=== PATIENT | male | born 1990 | race Caucasian/White ===

== ENCOUNTER 2017-02-23 17:18 | Emergency (ER) | payer OTHER ==
[2017-02-23] MEDS ORDERED: Diphtheria,Pertussis(Acell),Tetanus Vaccine 0.5 ML Syringe IM ONE (17:31)
[2017-02-23] MEDS ORDERED: Lidocaine 1% 20 ML MDV INJECT ONE (17:44)
[2017-02-23] MEDS ORDERED: Bacitracin Oint 1 GM U/D Packet TOP ONE (17:44)
--- NOTE | 2017-02-23 17:50 | EDM.PDOC ---
ED HPI GENERAL MEDICAL PROBLEM - General Chief Complaint: Upper Extremity Injury/Pain Stated Complaint: BROKE FINGER Time Seen by Provider: 02/23/17 17:24 Source of Information: Reports: Patient History Limitations: Reports: No Limitations - History of Present Illness INITIAL COMMENTS - FREE TEXT/NARRATIVE: HISTORY AND PHYSICAL: History of present illness: Patient is a 26-year-old male who presents to the emergency room today with complaints of right fifth digit crush injury. He states he was at work when 2 pieces of pipe crushed the fifth digit on his right hand. He has paper towels wrapped around it currently. Bleeding is controlled with mild pressure. Spiral laceration along the lateral portion of the fifth digit. Unsure of his last tetanus shot Review of systems: As per history of present illness and below otherwise all systems reviewed and negative. Past medical history: As per history of present illness and as reviewed below otherwise noncontributory. Surgical history: As per history of present illness and as reviewed below otherwise noncontributory. Social history: No reported history of drug or alcohol abuse. Family history: As per history of present illness and as reviewed below otherwise noncontributory. Physical exam: Gen.: Well-developed and well-nourished 26-year-old male. Appears nontoxic and in no acute distress. Alert and oriented. HEENT: Atraumatic, normocephalic, pupils reactive, negative for conjunctival pallor or scleral icterus, mucous membranes moist, throat clear, neck supple, nontender, trachea midline. Lungs: Clear to auscultation, breath sounds equal bilaterally, chest nontender. Heart: S1S2, regular, negative for clicks, rubs, or JVD. Abdomen: Soft, nondistended, nontender. Negative for masses or hepatosplenomegaly. Negative for costovertebral tenderness. Pelvis: Stable nontender. Genitourinary: Deferred. Rectal: Deferred. Extremities: Crush injury to the right fifth digit. Laceration measuring 1 cm laterally across the palmar surface- deep (was explored for debris and irrigated thoroughly with wound wash/normal saline) which runs into a "J" shaped laceration which is superficial for approximately 1 cm and then goes to an open laceration for 0.4 cm (this was irrigated with wound wash/normal saline) , which crosses to the lateral pinky onto the dorsal aspect of the hand. He has a small circular hematoma to the dorsal surface of the digit near the DIP joint. Patient has good flexion and extension of the affected digit. Capillary refill less than 3 seconds. Drawn radial pulse. Neurovascular unremarkable. Neuro: Awake, alert, oriented. Cranial nerves II through XII unremarkable. Cerebellum unremarkable. Motor and sensory unremarkable throughout. Exam nonfocal. 1800- area was cleansed with chlorhexidine after a digital block was performed. Offered patient some pain medication, he currently declines. He is aware that our hand surgeon is unavailable and he may need to go to [place] this evening. Currently waiting the radiology report. 1839- Dr. Khalil of [facility], was consulted on this case. He is awaiting to view our images on his [employer] system. He will return a phone call shortly. Diagnostics: X-ray of fifth digit and hand-right Therapeutics: Digital block, lidocaine 1% - 4-0 nylon, small needle, was used.#7 interrupted stitches. A shunt tolerated well Bacitracin bulky dressing cage splint Impression: Open comminuted fracture of the fifth digit Plan: 1. It's important for you to follow-up with an orthopedic hand surgeon on Sunday. You have 2 choices of whom you can see. Dr. Love Grijalva, in [place] is available at the [facility]. Or Dr Khalil of [facility]. Both of these phone numbers have been provided for you. Dr. Khalil is the physician that looked at your x-rays and is aware of her case. If you're unable to get in with Dr. Tinsley please call to [facility] in [place] to make your appointment. 2. You received Rocephin IM here. Please continue the antibiotics that have been prescribed for you. Monitor for signs of infection such as not limited to: fever, excessive drainage from the site, redness streaking up the arm. 3. Norco5/325 has been prescribed to you for pain management. He may take 1-2 tabs every 4-6 hours as needed. This is a narcotic so do not take it while driving or needing to be functioning. You may take ibuprofen for breakthrough pain. Rest, ice, elevate the extremity. 4. These keep the dressing on. You have been provided with a cage splint to protect the site. Keep the site clean and dry. 5. If any new symptoms arise follow-up in the ED as needed and as discussed. Definitive disposition and diagnosis as appropriate pending reevaluation and review of above. Onset: Today Duration: Minutes: Location: Reports: Upper Extremity, Right right pinky and right hand Pain Score (Numeric/FACES): 3 - Related Data Allergies Allergy/AdvReac Type Severity Reaction Status Date / Time No Known Allergies Allergy Verified 02/23/17 17:27 Home Meds: Home Meds Sertraline [Zoloft] 75 mg PO DAILY 03/03/15 [History] Hydrochlorothiazide 50 mg PO DAILY 02/23/17 [History] Lisinopril 20 mg PO DAILY 02/23/17 [History] Past Medical History Cardiovascular History: Reports: Hypertension Psychiatric History: Reports: Anxiety, Depression - Infectious Disease History Infectious Disease History: Reports: Chicken Pox Other Infectious Disease History: childhood - Past Surgical History HEENT Surgical History: Reports: Adenoidectomy, Tonsillectomy Social & Family History - Family History Family Medical History: Noncontributory - Tobacco Use Smoking Status *Q: Current Every Day Smoker Years of Tobacco use: 1 Packs/Tins Daily: 1 Second Hand Smoke Exposure: Yes - Caffeine Use Caffeine Use: Reports: Coffee Caffeine Use Comment: 8 oz per day - Recreational Drug Use Recreational Drug Use: No Review of Systems - Review of Systems Review Of Systems: ROS reveals no pertinent complaints other than HPI. ED EXAM, GENERAL - Physical Exam Exam: See Below (See dictation) ED TRAUMA EXTREMITY PROCEDURES - Laceration/Wound Repair Right Finger Lac/Wound Length In cm: 3 (See physical assessment) Appearance: Subcutaneous Distal NVT: Neuro & Vascular Intact, No Tendon Injury Anesthetic Type: Digital Local Anesthesia - Lidocaine (Xylocaine): 1% Plain Local Anesthetic Volume: 5cc Skin Prep: Chlorhexidine (Hibiciens), Saline Exploration/Debridement/Repair: Wound Explored, In a Bloodless Field, No Foreign Material Found Closed With: Sutures Suture Size: 4-0 Suture Type: Nylon # of Sutures: 7 Course - Vital Signs Last Recorded V/S: Last Vital Signs Temp 98.1 F 02/23/17 17:29 Pulse 78 02/23/17 17:29 Resp 16 02/23/17 17:29 BP 143/85 H 02/23/17 17:29 Pulse Ox 96 02/23/17 17:29 - Orders/Labs/Meds Orders: Active Orders 24 hr Category Date Time Status Communication Order [RC] STAT Care 02/23/17 17:45 Active Vaccines to be Administered [RC] PER UNIT ROUTINE Care 02/23/17 17:32 Active Fingers Fifth Digit Rt F9 [CR] Stat Exams 02/23/17 17:31 Taken Hand 2V Rt [CR] Stat Exams 02/23/17 17:31 Taken Meds: Medications Discontinued Medications Generic Name Dose Route Start Last Admin Trade Name Freq PRN Reason Stop Dose Admin Hydrocodone Bitart/Acetaminophen 1 tab 02/23/17 19:18 02/23/17 19:25 [place] 325-5 Mg PO 02/23/17 19:19 1 tab ONETIME ONE Administration Bacitracin 2 dose 02/23/17 17:44 02/23/17 19:11 Bacitracin Oint 1 Gm TOP 02/23/17 17:45 2 dose ONETIME ONE Administration Diphtheria/Tetanus/Acell Pertussis 0.5 ml 02/23/17 17:31 02/23/17 19:10 Adacel IM 02/23/17 17:32 0.5 ml .ONCE ONE Administration Ceftriaxone Sodium 1,000 mg/ 4 mls @ 4 mls/sec 02/23/17 18:55 02/23/17 19:07 Lidocaine HCl IM 02/23/17 18:56 4 mls/sec ONETIME ONE Administration Lidocaine HCl 20 ml 02/23/17 17:44 02/23/17 19:11 Xylocaine 1% INJECT 02/23/17 17:45 20 ml ONETIME ONE Administration Departure - Departure Time of Disposition: 19:47 Disposition: Home, Self-Care 01 Clinical Impression: Crush injury Finger fracture, right Qualifiers: Encounter type: initial encounter Finger: little finger Fracture type: open Phalanx: distal Fracture alignment: nondisplaced Qualified Code(s): S62.666B - Nondisplaced fracture of distal phalanx of right little finger, initial encounter for open fracture - Discharge Information Referrals: PCP,None [Primary Care Provider] - Forms: ED Department Discharge Additional Instructions: My general discharge The following information is given to patients seen in the emergency department who are being discharged to home. This information is to outline your options for follow-up care. We provide all patients seen in our emergency department with a follow-up referral. The need for follow-up, as well as the timing and circumstances, are variable depending upon the specifics of your emergency department visit. If you don't have a primary care physician on staff, we will provide you with a referral. We always advise you to contact your personal physician following an emergency department visit to inform them of the circumstance of the visit and for follow-up with them and/or the need for any referrals to a consulting specialist. The emergency department will also refer you to a specialist when appropriate. This referral assures that you have the opportunity for follow-up care with a specialist. All of these measure are taken in an effort to provide you with optimal care, which includes your follow-up. Under all circumstances we always encourage you to contact your private physician who remains a resource for coordinating your care. When calling for follow-up care, please make the office aware that this follow-up is from your recent emergency room visit. If for any reason you are refused follow-up, please contact the [facility] Emergency Department at and asked to speak to the emergency department charge nurse. [facility] Specialty Care - Plastic Surgery Professional Building [address] [place] [address], [address] [place] [address] Dr. Mckeon at [facility] [address] [place] [id number] 1. It's important for you to follow-up with an orthopedic hand surgeon on Sunday. You have 2 choices: of whom you can see. Dr. Love Grijalva, in [place] is available at the [facility]. Or Dr Mckeon of [facility]. Both of these phone numbers have been provided for you. Dr. Mckeon is the physician that looked at your x-rays and is aware of her case. If you're unable to get in with Dr. Tinsley please call to [facility] to make your appointment. Whom ever you follow-up with, please tell them you were seen in the emergency room and that you have a comminuted open fracture of your right fifth digit. Tell them you were seen and evaluated and you're instructed to follow-up on Sunday or Sunday for further care. 2. You received Rocephin IM here. Please continue the antibiotics that have been prescribed for you. Monitor for signs of infection such as not limited to: fever, excessive drainage from the site, redness streaking up the arm. 3. Norco5/325 has been prescribed to you for pain management. He may take 1-2 tabs every 4-6 hours as needed. This is a narcotic so do not take it while driving or needing to be functioning. You may take ibuprofen for breakthrough pain. Rest, ice, elevate the extremity. 4. These keep the dressing on. You have been provided with a cage splint to protect the site. Keep the site clean and dry. 5. If any new symptoms arise follow-up in the ED as needed and as discussed. - My Orders Last 24 Hours: My Active Orders 02/23/17 17:31 Fingers Fifth Digit Rt F9 [CR] Stat Hand 2V Rt [CR] Stat 02/23/17 17:32 Vaccines to be Administered [RC] PER UNIT ROUTINE 02/23/17 17:45 Communication Order [RC] STAT - Assessment/Plan Last 24 Hours: My Active Orders 02/23/17 17:31 Fingers Fifth Digit Rt F9 [CR] Stat Hand 2V Rt [CR] Stat 02/23/17 17:32 Vaccines to be Administered [RC] PER UNIT ROUTINE 02/23/17 17:45 Communication Order [RC] STAT
[2017-02-23] MEDS ORDERED: cefTRIAXone 1,000 MG in Lidocaine 1% 4 ML IM ONE (18:55)
[2017-02-23] MEDS ORDERED: Acetaminophen/HYDROcodone 325-5 MG Tab PO ONE (19:18)
[2017-02-23 19:51] VITALS: BP 141/74
--- NOTE | 2017-02-26 12:45 | CR ---
EXAM DATE: 02/23/17 PATIENT'S AGE: 26 Patient: MIHAELA SANCHEZ Facility: [place], [place] Site . Site : 1990 Study: XRay Extremity Right 5th digit [id number]/15/2017 6:06:25 PM Ordering Physician: Doctor Cam Final Report: Right hand 5th digit. 3 VIEWS INDICATION: Injury. IMPRESSION: Comminuted fracture at the middle phalanx of the 5th digit extending to the DIP joint. Mild angulation. The fracture fragment at the palmar aspect on the lateral view. Dictated by Armando Martinez MD @ Feb 23 2017 6:27PM (Electronic Signature) Report Signed by Proxy. KENIA
--- NOTE | 2017-02-26 12:46 | CR ---
EXAM DATE: 02/23/17 PATIENT'S AGE: 26 Patient: MIHAELA SANCHEZ Facility: [place], [place] Site . Site : 1990 Study: XRay Extremity Right hand [id number]/15/2017 6:06:57 PM Ordering Physician: Doctor Cam Final Report: Right hand 2 VIEWS INDICATION: Pain. Crush injury. IMPRESSION: Fracture of the distal aspect of the middle phalanx of the 5th digit. This extends to the DIP joint. No additional fractures in the right and. Normal remaining joint spaces in the right hand. Dictated by Armando Martinez MD @ Feb 23 2017 6:29PM (Electronic Signature) Report Signed by Proxy. KENIA
== END 2017-02-23 20:00 | disposition home or self-care (01) ==
LOC: MW.ED 17:18
DX: S67.196A Crushing injury of right little finger, initial encounter (principal); S62.666B Nondisplaced fracture of distal phalanx of right little finger, initial encounter for open fracture; I10 Essential (primary) hypertension; F32.9 Major depressive disorder, single episode, unspecified; F17.210 Nicotine dependence, cigarettes, uncomplicated; Z79.899 Other long term (current) drug therapy; W23.0XXA Caught, crushed, jammed, or pinched between moving objects, initial encounter; Y99.0 Civilian activity done for income or pay; Z23 Encounter for immunization
CPT/HCPCS: 12001; 73120; 73140; 90471; 90715; 96372; 99283; A9270; J0696; 99284

== ENCOUNTER 2017-03-02 07:42 | Day surgery (SDC) | payer OTHER ==
[~2017-03-02 07:42] MED LIST: Bupivacaine 25%/EPINEPHrine/PF 30 ML ONE; Lactated Ringers 1,000 ML IV SCH; ceFAZolin 2 GM in Premix Bag 1 BAG IV ONE
[2017-03-02] MEDS ORDERED: Bupivacaine 0.25%/EPINEPHrine 1:200,000 10 ML SDV INJECT ONE (08:00)
[2017-03-02] MEDS ORDERED: Acetaminophen/HYDROcodone 325-5 MG Tab PO PRN (08:00)
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
[2017-03-02] MEDS ORDERED: Propofol 200 MG/20 ML SDV ONE ×2 (08:46→09:14)
[2017-03-02] MEDS ORDERED: Midazolam 1 MG/ML 2 ML SDV ONE ×2 (08:46→09:14)
[2017-03-02] MEDS ORDERED: fentaNYL 100 MCG/2 ML SDV ONE ×3 (08:46→10:23)
[2017-03-02] MEDS ORDERED: Lidocaine 2% 5 ML SDV ONE ×2 (08:46→09:14)
[2017-03-02] MEDS ORDERED: fentaNYL 100 MCG/2 ML SDV IVPUSH PRN (09:30)
[2017-03-02] MEDS ORDERED: HYDROmorphone 2 MG/ML Syringe ONE (11:10)
[2017-03-02] MEDS ORDERED: Ketorolac 30 MG/ML SDV ONE (11:12)
[2017-03-02] MEDS ORDERED: Ondansetron 4 MG/2 ML SDV ONE (11:12)
[2017-03-02 13:40] VITALS: BP 122/60
--- NOTE | 2017-03-02 20:01 | OR ---
SURGEON: FLAVIA SIDHU MD DATE OF PROCEDURE: 03/02/2017 PREOPERATIVE DIAGNOSIS: Right small finger middle phalanx intra-articular fracture. POSTOPERATIVE DIAGNOSIS: Right small finger middle phalanx intra-articular fracture with anesthesia of the finger tip and compromise of the bilateral digital nerves. PROCEDURE: Fusion of right small finger DIP joint and repair of bilateral digital nerves with nerve conduits. HELP DESK TECHNICIAN: MERNA Masterson. Reason for human resource assistant was retraction, closure, prepping assistance. INDICATIONS: Mr. Villanueva is a 26-year-old gentleman, who unfortunately had a large complicated open fracture to the right small finger at the middle phalanx. It is an intra- articular and a very unfavorable fracture pattern. He presented to us in a delayed fashion in referral from the emergency room as an outpatient. Risks and benefits of repair versus fusion versus amputation were discussed with him. He does understand that we will approach this in a stepwise fashion. Risks were including, but not limited to, bleeding, infection, damage to underlying or overlying structures, possible need for future interventions, and possible scarring. PROCEDURE IN DETAIL: After informed consent was obtained and placed on the chart, the patient was brought to the operating theater and laid in supine position. After adequate local and general LMA anesthesia was obtained, the area was prepped and draped and a time-out was completed to confirm side and site. Once adequately prepped and draped, attention was first paid to fluoroscopy examination demonstrating 2 fracture segments that are intra-articular and splaying with several other smaller fragments. Attempt was made at K-wire fixation of these and unfortunately it was unsuccessful. Once deemed unable to reduce this and of note, when the extensor tendon was noted to be compromised, it was decided the fusion would be a better option for healing in this patient. The bony pieces were removed through the volar open laceration and the area was debrided and irrigated copiously. The small fragments were removed and the proximal end of the distal phalanx was removed as well. Two 0.035 K-wires were placed in a crossed fashion over the distal interphalangeal joint. There was a small amount of spacer remaining good healthy bone stock from the pieces were trimmed and used as bone graft for this. It was pinned in approximately 50 degrees of flexion. Once adequately pinned, the flexor tendon was appreciated to be intact. However, bilateral digital nerves and the radial digital artery were compromised. The ulnar digital artery was intact. The digital nerves were reapproximated through 2.5 mm Neuroflex conduits from [employer]. Once adequately reapproximated, a 6-0 nylon suture was used to secure the conduit in place. Once adequately secured and the nerves were appreciated to be in appropriate position, the skin edges were trimmed of any gross contamination. Again, the wound was irrigated and then the skin was closed using a 5-0 Prolene stitch in a horizontal mattress fashion. The patient tolerated the procedure well. All counts and needles were correct at the end of the case. FOLLOWUP INSTRUCTIONS: The patient will see us in about 7 days, sooner if any problems, questions, or concerns. He was given a prescription for pain control and was placed in a hand based plaster splint. He will call with any issues in the meantime. A prescription for [place] was provided and he will continue the antibiotics he is on. HEGGTHE / MODL /[id number]
== END 2017-03-02 13:20 | disposition home or self-care (01) ==
LOC: MW.SDS 07:42
PROVIDERS: ATTEND Plastic Surgery
DX: S62.626B Displaced fracture of middle phalanx of right little finger, initial encounter for open fracture (principal); I10 Essential (primary) hypertension; J45.909 Unspecified asthma, uncomplicated; F41.9 Anxiety disorder, unspecified; F32.9 Major depressive disorder, single episode, unspecified; E66.9 Obesity, unspecified; Z68.30 Body mass index [BMI] 30.0-30.9, adult; Z87.891 Personal history of nicotine dependence; Z79.899 Other long term (current) drug therapy
CPT/HCPCS: 26568; 64910; J1170; J1885; J2250; J2405; J3010; J7120; 01830; C1763; J2704